=== PATIENT | male | born 1985 | race Caucasian/White ===

== ENCOUNTER 2017-01-10 23:11 | Emergency (ER) | payer OTHER ==
[2017-01-10 23:19] VITALS: BP 141/94; PULSE 90; TEMP 98.6; BMI 29.7
== END 2017-01-11 01:01 | disposition left against medical advice (07) ==
LOC: JER 23:11
DX: Z53.21 Procedure and treatment not carried out due to patient leaving prior to being seen by health care provider (principal)
CPT/HCPCS: 99281-25

== ENCOUNTER 2017-02-24 11:13 | Emergency (ER) | payer OTHER ==
[2017-02-24 11:22] VITALS: TEMP 98.1; BMI 30.2
--- NOTE | 2017-02-24 12:06 | PDOC ---
History of Present Illness - General History Source: Patient Exam Limitations: No Limitations - History of Present Illness Initial Comments: 02/24/17 12:31 The patient is a 31 year old male with a significant past medical history of hypertension, and arthritis, presenting to the Emergency Department with chest pain for 6 months. The patient reports that he has been experiencing chest pain on exertion for the past 6 months. He states that when walking he feels pain and shortness of breath, though he continues walking. He states that his symptoms have not become better or worse over the past 6 months. He states that he is here because he wants to check his heart. He does not have a PCP. He admits that he takes Lisinopril for his hypertension. The patient denies nausea, vomiting, and diarrhea. Patient palpitations, or diaphoresis. Patient denies headache, dizziness, and visual changes. Patient denies fever, chills, and cough. Social Hx: 5-10 cigarettes per day <Linda Arriola - Last Filed: 02/24/17 12:31> <Sherice Machuca - Last Filed: 02/24/17 15:07> - General Chief Complaint: Chest Pain Stated Complaint: CHEST PAIN/sob Time Seen by Provider: 02/24/17 12:06 Past History <Linda Arriola - Last Filed: 02/24/17 12:31> - Past Medical History HTN: Yes Psychiatric Problems: Yes (depression) Other medical history: eczema - Immunization History Immunization Up to Date: Yes - Psycho/Social/Smoking Cessation Hx Suicidal Ideation: No Smoking History: Current every day smoker Number of Cigarettes Smoked Daily: 5 Information on smoking cessation initiated: Yes 'Breaking Loose' booklet given: 02/24/17 Hx Alcohol Use: Yes Drug/Substance Use Hx: No Substance Use Type: None <Sherice Machuca - Last Filed: 02/24/17 15:07> - Past Medical History Allergies/Adverse Reactions: Allergies Allergy/AdvReac Type Severity Reaction Status Date / Time Penicillins Allergy Verified 02/24/17 11:22 Home Medications: Ambulatory Orders Citalopram Hydrobromide [Citalopram HBr] 20 mg PO DAILY 02/24/17 Lisinopril [Prinivil] 20 mg PO DAILY 02/24/17 Review of Systems - Review of Systems Able to Perform ROS?: Yes Comments:: 02/24/17 12:32 CONSTITUTIONAL: Absent: fever, no chills, no fatigue EYES: Absent: visual changes ENT: Absent: ear pain, no sore throat CARDIOVASCULAR: Present: + chest pain on exertion Absent: no palpitations RESPIRATORY: Present: + shortness of breath on exertion Absent: cough GI: Absent: abdominal pain, no nausea, no vomiting, no constipation, no diarrhea GENITOURINARY: Absent: dysuria, no frequency, no hematuria MUSCULOSKELETAL: Absent: back pain, no arthralgia, no myalgia SKIN: Absent: rash NEURO: Absent: headache <Linda Arriola - Last Filed: 02/24/17 12:31> *Physical Exam - Vital Signs Last Vital Signs Temp Pulse Resp BP Pulse Ox 98.1 F 63 19 152/62 100 02/24/17 11:20 02/24/17 11:20 02/24/17 11:20 02/24/17 11:20 02/24/17 11:20 - Physical Exam Comments: 02/24/17 12:33 GENERAL: Well-appearing, well-nourished. No apparent distress. HEENT: Normocephalic, atraumatic. PERRL, EOM intact. CARDIOVASCULAR: Regular rate and rhythm. No murmurs, rubs, or gallops. Distal pulses are 2+ and symmetric. PULMONARY: No evidence of respiratory distress. Lungs clear to auscultation bilaterally. No wheezing, rales or rhonchi. ABDOMEN: Soft, non-distended, non-tender. EXTREMITIES: Normal ROM in all four extremities. No gross deformities. SKIN: Warm, dry. No rash NEUROLOGICAL: No focal neurological deficits. <Linda Arriola - Last Filed: 02/24/17 12:31> - Vital Signs Last Vital Signs Temp Pulse Resp BP Pulse Ox 98.1 F 63 19 152/62 100 02/24/17 11:20 02/24/17 11:20 02/24/17 11:20 02/24/17 11:20 02/24/17 11:20 <Sherice Machuca - Last Filed: 02/24/17 15:07> ED Treatment Course - LABORATORY CBC & Chemistry Diagram: 02/24/17 13:04 02/24/17 13:04 <Sherice Machuca - Last Filed: 02/24/17 15:07> Medical Decision Making - Medical Decision Making 02/24/17 14:39 Patient presents to the ED with chest pain that has been unchanged for the last six months. Pain occurs with exertion, but patient is able to walk 10 km before the onset of the pain. Denies shortness of breath. Denies change in the character or intensity of his pain, but presents today for a "check-up" 02/24/17 14:42 <Sherice Machuca - Last Filed: 02/24/17 15:07> *DC/Admit/Observation/Transfer - Attestations Scribe Attestion: 02/24/17 12:33 Documentation prepared by Linda Arriola, acting as medical insurance coding specialist for Sherice Machuca MD. <Linda Arriola - Last Filed: 02/24/17 12:31> <Sherice Machuca - Last Filed: 02/24/17 15:07> Diagnosis at time of Disposition: Chest pain Qualifiers: Chest pain type: other chest pain Qualified Code(s): R07.89 - Other chest pain ; R07.8 - Other chest pain - Discharge Dispostion Condition at time of disposition: Good - Referrals Referrals: Janine Yang MD [Staff Physician] - - Patient Instructions Printed Discharge Instructions: DI for Chest Pain Additional Instructions: Return immediately to the ED for severe pain, pain with shortness of breath, pain that is worse or lasts longer than the pain you were having before. Make sure that you see a primary care doctor--you need further work up of your chest pain
[2017-02-24 13:17] LABS: BASOPHIL 0.6 % (0-2.0); EOSINOPHIL 3.3 % (0-4.5); MCH 24.6 pg (25.7-33.7); MCHC 32.1 g/dl (32.0-35.9); MEAN CELL VOLUME 76.6 fl (80-96); MEAN PLT VOLUME 8.5 fl (7.5-11.1); PLATELET COUNT 221 K/MM3 (134-434); RDW 14.7 % (11.9-15.9)
[2017-02-24 13:49] LABS: ALBUMIN 3.3 g/dl (3.4-5.0); ANION GAP 9 (8-16); CALCIUM 8.5 mg/dL (8.5-10.1); CO2 25 mmol/L (21-32); CREATININE 0.6 mg/dL (0.7-1.3); GLUCOSE,RANDOM 70 mg/dL (74-106); SGPT/ALT 32 U/L (12-78)
[2017-02-24 13:53] LABS: ALK PHOS 69 U/L (45-117); BILIRUBIN,TOTAL 0.4 mg/dL (0.2-1.0); TOT PROT 6.9 g/dl (6.4-8.2); TROPONIN I < 0.02 ng/ml (0.00-0.05)
[2017-02-24 13:56] LABS: SGOT/AST 32 U/L (15-37)
[2017-02-24 15:06] VITALS: BP 124/60; PULSE 73
--- NOTE | 2017-02-25 10:21 | EKG ---
Test Reason : Blood Pressure : / mmHG Vent. Rate : 056 BPM Atrial Rate : 056 BPM P-R Int : 156 ms QRS Dur : 100 ms QT Int : 396 ms P-R-T Axes : 048 037 044 degrees QTc Int : 382 ms SINUS BRADYCARDIA OTHERWISE NORMAL ECG NO PREVIOUS ECGS AVAILABLE Confirmed by MD BERNADETTE, SACHA ([id number]) on 02/25/2017 10:21:08 AM Referred By: Confirmed By:SACHA FLEMING MD
== END 2017-02-24 15:09 | disposition home or self-care (01) ==
LOC: JER 11:13
DX: R07.89 Other chest pain (principal); M12.9 Arthropathy, unspecified; F17.210 Nicotine dependence, cigarettes, uncomplicated
CPT/HCPCS: 36415; 80053; 82550; 84484; 85025; 93005; 93010; 99282-25

== ENCOUNTER 2017-03-01 22:02 | Emergency (ER) | payer OTHER | END 2017-03-02 01:13 | disposition left against medical advice (07) | LOC: JER 22:02 | DX: Z53.21 Procedure and treatment not carried out due to patient leaving prior to being seen by health care provider (principal) | CPT/HCPCS: 99281-25 ==

== ENCOUNTER 2017-05-17 10:40 | Emergency (ER) | payer OTHER ==
[2017-05-17 10:45] VITALS: TEMP 99.3; BMI 31.8
--- NOTE | 2017-05-17 11:05 | PDOC ---
History of Present Illness <Jax Whitlock - Last Filed: 05/17/17 13:39> - General History Source: Patient Exam Limitations: No Limitations - History of Present Illness Initial Comments: 05/17/17 13:44 The patient is a 31 year old male, with a significant past medical history of HTN, Depression who presents to the emergency department with intermittent dizziness for the past year. Describes his dizziness as lightheadedness that comes on intermittently for a few seconds and resolves. Denies LOC. Patient also reports increasing fatigue and laziness at work. Patient requests Xray of his brain to check his dopamine levels and blood work for diabetes. Patient has not seen PCP in over a year due to recent move to [place]. Patient denies any changes in his current medications. Patient denies current weakness, numbness or headache. He denies chest pain, headache, fever, chills, abdominal pain, nausea, vomit, diarrhea or constipation. He denies dysuria, frequency, urgency or hematuria. Allergies: Penicillins Past surgical history: Nose sx Social history: Current everyday smoker, denies EtOH or IVDA PCP: None <Michelle Schwartz - Last Filed: 05/17/17 13:44> - General Chief Complaint: Lightheaded Stated Complaint: DIZZINESS Time Seen by Provider: 05/17/17 11:04 Past History - Past Medical History HTN: Yes Psychiatric Problems: Yes (depression) - Immunization History Immunization Up to Date: Yes - Suicide/Smoking/Psychosocial Hx Smoking History: Current every day smoker Number of Cigarettes Smoked Daily: 5 Information on smoking cessation initiated: Yes 'Breaking Loose' booklet given: 05/17/17 Hx Alcohol Use: No Drug/Substance Use Hx: No Substance Use Type: None <Jax Whitlock - Last Filed: 05/17/17 13:39> <Michelle Schwartz - Last Filed: 05/17/17 13:44> - Past Medical History Allergies/Adverse Reactions: Allergies Allergy/AdvReac Type Severity Reaction Status Date / Time Penicillins Allergy Verified 05/17/17 10:45 Home Medications: Ambulatory Orders Citalopram Hydrobromide [Citalopram HBr] 20 mg PO DAILY 02/24/17 Lisinopril [Prinivil] 20 mg PO DAILY 02/24/17 Review of Systems - Review of Systems Able to Perform ROS?: Yes Comments:: 05/17/17 13:44 GENERAL/CONSTITUTIONAL: No fever or chills. No weakness. HEAD, EYES, EARS, NOSE AND THROAT: No change in vision. No ear pain or discharge. No sore throat. GASTROINTESTINAL: No nausea, vomiting, diarrhea or constipation. GENITOURINARY: No dysuria, frequency, or change in urination. CARDIOVASCULAR: No chest pain or shortness of breath. RESPIRATORY: No cough, wheezing, or hemoptysis. MUSCULOSKELETAL: No joint or muscle swelling or pain. No neck or back pain. SKIN: No rash NEUROLOGIC: +dizziness. No headache, vertigo, loss of consciousness, or change in strength/sensation. ENDOCRINE: No increased thirst. No abnormal weight change. HEMATOLOGIC/LYMPHATIC: No anemia, easy bleeding, or history of blood clots. ALLERGIC/IMMUNOLOGIC: No hives or skin allergy. <Michelle Schwartz - Last Filed: 05/17/17 13:44> *Physical Exam - Vital Signs Last Vital Signs Temp Pulse Resp BP Pulse Ox 99.3 F 63 19 151/78 100 05/17/17 10:43 05/17/17 10:43 05/17/17 10:43 05/17/17 10:43 05/17/17 10:43 <Jax Whitlock - Last Filed: 05/17/17 13:39> - Vital Signs Last Vital Signs Temp Pulse Resp BP Pulse Ox 99.3 F 65 18 119/75 100 05/17/17 10:43 05/17/17 13:01 05/17/17 13:01 05/17/17 13:01 05/17/17 13:01 - Physical Exam Comments: 05/17/17 13:44 GENERAL: Awake, alert, and fully oriented, in no acute distress HEAD: No signs of trauma EYES: PERRLA, EOMI, sclera anicteric, conjunctiva clear ENT: Auricles normal inspection, hearing grossly normal, nares patent, oropharynx clear without exudates. Moist mucosa NECK: Normal ROM, supple, no lymphadenopathy, JVD, or masses LUNGS: Breath sounds equal, clear to auscultation bilaterally. No wheezes, and no crackles HEART: Regular rate and rhythm, normal S1 and S2, no murmurs, rubs or gallops ABDOMEN: Soft, nontender, normoactive bowel sounds. No guarding, no rebound. No masses EXTREMITIES: Normal range of motion, no edema. No clubbing or cyanosis. No cords , erythema, or tenderness BACK: No midline spinal tenderness in cervical/thoracic/lumbar region NEUROLOGICAL: Normal speech, cranial nerves intact, negative pronator drift, 5/5 strength in all 4 extremities, normal sensation to light touch in all 4 extremities, normal cerebellar exam, normal gait, normal reflexes and tone SKIN: Warm, Dry, normal turgor, no rashes or lesions noted. <Michelle Schwartz - Last Filed: 05/17/17 13:44> ED Treatment Course - LABORATORY CBC & Chemistry Diagram: 05/17/17 11:52 05/17/17 11:52 <Jax Whitlock - Last Filed: 05/17/17 13:39> - LABORATORY CBC & Chemistry Diagram: 05/17/17 11:52 05/17/17 11:52 - ADDITIONAL ORDERS Additional order review: Laboratory Results 05/17/17 11:52 Sodium 140 Potassium 4.2 Chloride 103 Carbon Dioxide 33 H D Anion Gap 4 L BUN 12 Creatinine 0.7 Creat Clearance w eGFR > 60 Random Glucose 73 L Calcium 8.8 Magnesium 2.0 Total Bilirubin 0.3 D AST 24 D ALT 54 D Alkaline Phosphatase 80 Troponin I < 0.02 Total Protein 7.5 Albumin 3.7 TSH 1.24 05/17/17 11:52 RBC 6.03 H MCV 77.9 L MCHC 31.6 L RDW 14.6 MPV 8.3 Neutrophils % 68.6 Lymphocytes % 19.3 Monocytes % 8.3 Eosinophils % 3.3 Basophils % 0.5 <Michelle Schwartz - Last Filed: 05/17/17 13:44> Medical Decision Making - Medical Decision Making 05/17/17 11:27 31-year-old male history of hypertension and depression presents with 1 year of intermittent lightheadedness. Vitals here with hypertension to 150s systolic but otherwise unremarkable. Exam unremarkable. Differential includes anemia versus toxic metabolic versus cardiac etiology. Pt does not have a PMD in the area which is we he presented to the ED today. -labs -CXR -IVF-reassess 05/17/17 13:39 Labs and chest x-ray unremarkable. Glucose was 73 on labs, patient was given lunch to eat. Patient ambulating in the emergency Department with a steady gait. Discussed the importance of following closely with a primary care doctor. I discussed the physical exam findings, ancillary test results and final diagnoses with the patient. I answered all of the patient's questions. The patient was satisfied with the care received and felt comfortable with the discharge plan and treatment plan. The patient will call their primary care physician within 24 hours to arrange follow-up and will return to the Emergency Department with any new, persistent or worsening symptoms. <Jax Whitlock - Last Filed: 05/17/17 13:39> *DC/Admit/Observation/Transfer - Discharge Dispostion Admit: No - Attestations Physician Attestion: 05/17/17 13:42 I, Dr. Jax Whitlock MD, attest that this document has been prepared under my direction and personally reviewed by me in its entirety. I further attest, that it accurately reflects all work, treatment, procedures and medical decision -making performed by me. <Jax Whitlock - Last Filed: 05/17/17 13:39> - Attestations Scribe Attestion: 05/17/17 13:44 Documentation prepared by Michelle Schwartz, acting as medical appointment scheduler for Jax Whitlock MD <Michelle Schwartz - Last Filed: 05/17/17 13:44> Diagnosis at time of Disposition: Light-headed feeling - Discharge Dispostion Disposition: HOME Condition at time of disposition: Stable - Referrals Referrals: Garo Reed MD [Staff Physician] - - Patient Instructions Additional Instructions: Call Dr. Reed's office for an appointment with a primary doctor within 1 week. Return to the emergency department if you have any new, worsening, or concerning symptoms.
[2017-05-17 12:07] LABS: BASOPHIL 0.5 % (0-2.0); EOSINOPHIL 3.3 % (0-4.5); MCH 24.7 pg (25.7-33.7); MCHC 31.6 g/dl (32.0-35.9); MEAN CELL VOLUME 77.9 fl (80-96); MEAN PLT VOLUME 8.3 fl (7.5-11.1); NEUTROPHILS 68.6 % (42.8-82.8); PLATELET COUNT 232 K/MM3 (134-434); RDW 14.6 % (11.9-15.9); WHITE BLOOD COUNT 7.7 K/mm3 (4.0-10.0)
[2017-05-17 12:28] LABS: ALBUMIN 3.7 g/dl (3.4-5.0); ALK PHOS 80 U/L (45-117); ANION GAP 4 (8-16); BILIRUBIN,TOTAL 0.3 mg/dL (0.2-1.0); CALCIUM 8.8 mg/dL (8.5-10.1); CO2 33 mmol/L (21-32); CREATININE 0.7 mg/dL (0.7-1.3); GLUCOSE,RANDOM 73 mg/dL (74-106); SGOT/AST 24 U/L (15-37); SGPT/ALT 54 U/L (12-78); TOT PROT 7.5 g/dl (6.4-8.2)
[2017-05-17 12:36] LABS: THYROID STIMULATING HORMONE 1.24 uIU/ml (0.358-3.74); TROPONIN I < 0.02 ng/ml (0.00-0.05)
[2017-05-17 13:03] VITALS: BP 119/75; PULSE 65
--- NOTE | 2017-05-17 21:57 | EKG ---
Test Reason : Blood Pressure : / mmHG Vent. Rate : 060 BPM Atrial Rate : 060 BPM P-R Int : 158 ms QRS Dur : 100 ms QT Int : 390 ms P-R-T Axes : 049 032 022 degrees QTc Int : 390 ms NORMAL SINUS RHYTHM BASELINE ARTIFACT INCOMPLETE RIGHT BUNDLE BRANCH BLOCK BORDERLINE ECG WHEN COMPARED WITH ECG OF 24-FEB-2017 11:20, NO SIGNIFICANT CHANGE WAS FOUND CLINICAL CORRELATION IS RECOMMENDED Confirmed by SANDRA ARRIAZA MD ([id number]) on 05/17/2017 9:57:04 PM Referred By: Confirmed By:SANDRA ARRIAZA MD
== END 2017-05-17 13:47 | disposition home or self-care (01) ==
LOC: JER 10:40
DX: R42 Dizziness and giddiness (principal); I10 Essential (primary) hypertension; F32.9 Major depressive disorder, single episode, unspecified; F17.210 Nicotine dependence, cigarettes, uncomplicated; Z88.0 Allergy status to penicillin
CPT/HCPCS: 36415; 71020-TC; 80053; 83735; 84443; 84484; 85025; 93005; 93010; 99283-25